=== PATIENT | female | born 1970 | race Asian ===

== ENCOUNTER 2023-09-03 20:32 | Emergency (ER) | payer MEDICAID ==
[~2023-09-03] VITALS: Ht 185.4 cm; Wt 103.0 kg
[2023-09-03 20:41] VITALS: TEMP 98; O2SAT 97
[2023-09-03] MEDS ORDERED: KETOROLAC 15MG/ML VIAL IM ONE (21:15)
[2023-09-03] MEDS ORDERED: MORPHINE SULFATE 10 MG/ML CPJ IM ONE (21:30)
[2023-09-03] MEDS ORDERED: MORPHINE SULFATE 10 MG/ML CPJ IM NR (22:15)
[2023-09-03] MEDS ORDERED: KETOROLAC 15MG/ML VIAL IM NR (22:15)
[2023-09-03 22:27] VITALS: BP 123/63; PULSE 58; RESP 16
[2023-09-03] MEDS ORDERED: HYDR-4001 MT (23:18)
== END 2023-09-04 00:12 | disposition home or self-care (01) ==
LOC: ER 20:50
DX: M54.50 Low back pain, unspecified (principal); G89.29 Other chronic pain
CPT/HCPCS: 99284; 96372; J1885; J2270

== ENCOUNTER 2024-04-10 11:37 | Emergency (ER) | payer MEDICAID, OTHER ==
[~2024-04-10] VITALS: Ht 172.7 cm; Wt 95.0 kg
[~2024-04-10 11:37] MED LIST: HYDR-4001 MT
[2024-04-10 11:43] VITALS: TEMP 98.2; O2SAT 95
[2024-04-10 13:00] VITALS: BP 117/60; PULSE 86
[2024-04-10] MEDS: HYDROCODONE/ACETAMINOPHEN 7.5/325MG TABLET PO ONE (13:00)
[2024-04-10 15:36] VITALS: RESP 17
== END 2024-04-10 15:45 | disposition home or self-care (01) ==
LOC: ER 11:38
DX: G89.29 Other chronic pain (principal); M54.50 Low back pain, unspecified; W18.39XA Other fall on same level, initial encounter; Y93.89 Activity, other specified; Y92.89 Other specified places as the place of occurrence of the external cause; Y99.8 Other external cause status
CPT/HCPCS: 81025; 72100; 99283; Z7610

== ENCOUNTER 2024-04-20 13:20 | Emergency (ER) | payer OTHER ==
[~2024-04-20] VITALS: Ht 182.9 cm; Wt 101.0 kg
[2024-04-20 13:37] VITALS: O2SAT 96
[2024-04-20] MEDS: METHOCARBAMOL 500MG TABLET PO ONE (14:47)
[2024-04-20] MEDS: KETOROLAC 30MG/ML VIAL IM ONE (14:47)
[2024-04-20] MEDS ORDERED: IBUP-2029 MT (16:28)
[2024-04-20] MEDS ORDERED: LIDO700A30 TP (16:28)
[2024-04-20] MEDS ORDERED: OXYC1TAB5 MT (16:32)
[2024-04-20 16:33] VITALS: BP 124/78; PULSE 63; RESP 18; TEMP 36.89184; O2SAT 96
== END 2024-04-20 17:20 | disposition home or self-care (01) ==
LOC: ER 13:29
DX: S32.2XXA Fracture of coccyx, initial encounter for closed fracture (principal); W18.30XA Fall on same level, unspecified, initial encounter; Y93.89 Activity, other specified; Y92.89 Other specified places as the place of occurrence of the external cause; Y99.8 Other external cause status
CPT/HCPCS: 72131; 72192; 96372; 99285; J1885; Z7610